=== PATIENT | male | born 1970 | race Caucasian/White ===

== ENCOUNTER 2017-12-23 19:21 | Observation (INO) ==
[2017-12-23] MEDS ORDERED: Aspirin 81 MG TAB.CHEW PO ONE (19:39)
[2017-12-23] MEDS ORDERED: *HR* LORazepam 2 MG/ML VIAL IM STA (19:40)
--- NOTE | 2017-12-23 19:41 | Emergency Department Note ---
Disposition Clinical Impression: Patient needs psychiatric hold for evaluation, Chest pain, Seizures, Pneumonia Disposition: Admitted As Inpatient Condition: Fair General Adult HPI - General Chief complaint: ED Chest Pain Stated complaint: chest pain, seizure activity Time Seen by Provider: 12/23/17 19:32 - History of Present Illness Pain Scale: 10 - Related Data Home Medications Medication Instructions Recorded Confirmed ALPRAZolam [Xanax 0.5 MG Tablet] 0.5 mg PO QID 12/24/17 ALPRAZolam [Xanax 1 MG Tablet] 1 mg PO QID 12/24/17 Citalopram [CeleXA] 20 mg PO DAILY 12/24/17 12/24/17 HydrOXYzine Pamoate [Vistaril] 50 mg PO Q6H PRN 12/24/17 12/24/17 Lurasidone HCl [Latuda] 60 mg PO DAILY 12/24/17 12/24/17 Prazosin [Minipress] 1 mg PO DAILY 12/24/17 12/24/17 Trazodone HCl 150 mg PO HS 12/24/17 12/24/17 Allergies Allergy/AdvReac Type Severity Reaction Status Date / Time codeine Allergy Hives Verified 12/23/17 19:23 propoxyphene Allergy Hives Verified 12/23/17 19:23 [From Darvocet-N] tramadol AdvReac Vomiting Verified 12/23/17 19:23 Past Medical History - Past Medical History Medical history: Reports: diabetes, hepatitis Psychiatric history: Reports: no psych history - Social History Smoking Status: Current every day smoker Alcohol use: Reports: none Drug use: Reports: none Course Vital Signs Temperature 98.3 F 12/23/17 19:24 Pulse Rate 105 12/23/17 19:24 Respiratory Rate 13 12/23/17 19:24 Blood Pressure 163/97 12/23/17 19:24 O2 Sat by Pulse Oximetry 99 12/23/17 19:24 Temperature 97.4 F L 12/24/17 03:53 Pulse Rate 80 12/24/17 06:50 Respiratory Rate 18 12/24/17 07:58 Blood Pressure 138/94 12/24/17 07:58 O2 Sat by Pulse Oximetry 100 12/24/17 06:50 Oxygen Delivery Oxygen Delivery Room Air Medical Decision Making - Lab Data Result diagrams: 12/24/17 05:12 12/23/17 20:59 Lab Results 12/23/17 12/23/17 12/23/17 Range/Units 20:50 20:50 20:59 WBC 18.4 H (4.3-11.1) K/mcL RBC 4.43 (4.19-5.50) M/mcL Hgb 13.8 (12.9-16.9) g/dL Hct 39.9 (37.5-50.1) % MCV 90.1 (83.0-100.0) fL MCH 31.2 (28.0-33.3) pg MCHC 34.6 (31.6-35.5) g/dL RDW 12.6 (11.5-14.5) % Plt Count 190 (140-400) K/mcL MPV 11.4 (9.4-12.4) fL Immature Gran % 0.3 (0-4) % Seg Neutrophils % 81.1 % Lymphocytes % 13.0 % Monocytes % 5.2 % Eosinophils % 0.2 % Basophils % 0.2 % Neutrophils # 14.9 H (1.6-8.9) K/mcL Lymphocytes # 2.4 (0.6-4.6) K/mcL Monocytes # 1.0 (0.0-1.3) K/mcL Eosinophils # 0.0 (0.0-0.6) K/mcL Basophils # 0.0 (0.0-0.2) K/mcL Sodium (136-145) mEq/L Potassium (3.5-5.1) mEq/L Chloride (98-107) mEq/L Carbon Dioxide (23-29) mEq/L BUN (6-20) mg/dL Creatinine (0.70-1.30) mg/dL Est GFR ( Amer) (> 60) Est GFR (Non-Af Amer) (> 60) BUN/Creatinine Ratio (6-26) Glucose (70-105) mg/dL Calculated Osmolality (280-300) Calcium (8.6-10.3) mg/dL Troponin I (< 0.04) ng/mL TSH (0.340-5.600) mcIU/mL Urine Color Yellow (Yellow) Urine Clarity Clear (Clear) Urine pH 7.5 (5.0-8.0) pH Units Ur Specific [place] 1.013 (1.010-1.025) Urine Protein Negative (Neg-Trace) mg/dL Urine Glucose (UA) Normal (Normal) mg/dL Urine Ketones Negative (Negative) mg/dL Urine Blood Negative (Negative) Urine Nitrite Negative (Negative) Urine Bilirubin Negative (Negative) Urine Urobilinogen Normal (Normal) mg/dL Ur Leukocyte Esterase Negative (Negative) Salicylates (15.0-30.0) mg/dL Urine Opiates Screen Positive H (Psjlfs=434) ng/mL Acetaminophen (10-20) mcg/mL Ur Barbiturates Screen Negative (Hpuxvd=418) ng/mL Ur Phencyclidine Scrn Negative (Cutoff=25) ng/mL Ur Amphetamines Screen Negative (Bplnrz=9656) ng/mL U Benzodiazepines Scrn Positive H (Loauoa=739) ng/mL Urine Cocaine Screen Positive H (Cutoff= 300) ng/mL U Marijuana (THC) Screen Positive H (Cutoff = 50) ng/mL Ethyl Alcohol (Less than 10) mg/dL 12/23/17 12/23/17 12/23/17 Range/Units 20:59 20:59 20:59 WBC (4.3-11.1) K/mcL RBC (4.19-5.50) M/mcL Hgb (12.9-16.9) g/dL Hct (37.5-50.1) % MCV (83.0-100.0) fL MCH (28.0-33.3) pg MCHC (31.6-35.5) g/dL RDW (11.5-14.5) % Plt Count (140-400) K/mcL MPV (9.4-12.4) fL Immature Gran % (0-4) % Seg Neutrophils % % Lymphocytes % % Monocytes % % Eosinophils % % Basophils % % Neutrophils # (1.6-8.9) K/mcL Lymphocytes # (0.6-4.6) K/mcL Monocytes # (0.0-1.3) K/mcL Eosinophils # (0.0-0.6) K/mcL Basophils # (0.0-0.2) K/mcL Sodium 139 (136-145) mEq/L Potassium 3.6 (3.5-5.1) mEq/L Chloride 107 (98-107) mEq/L Carbon Dioxide 24 (23-29) mEq/L BUN 11 (6-20) mg/dL Creatinine 1.02 (0.70-1.30) mg/dL Est GFR ( Amer) > 60 (> 60) Est GFR (Non-Af Amer) > 60 (> 60) BUN/Creatinine Ratio 11 (6-26) Glucose 102 (70-105) mg/dL Calculated Osmolality 288 (280-300) Calcium 9.2 (8.6-10.3) mg/dL Troponin I < 0.03 (< 0.04) ng/mL TSH 0.546 (0.340-5.600) mcIU/mL Urine Color (Yellow) Urine Clarity (Clear) Urine pH (5.0-8.0) pH Units Ur Specific [place] (1.010-1.025) Urine Protein (Neg-Trace) mg/dL Urine Glucose (UA) (Normal) mg/dL Urine Ketones (Negative) mg/dL Urine Blood (Negative) Urine Nitrite (Negative) Urine Bilirubin (Negative) Urine Urobilinogen (Normal) mg/dL Ur Leukocyte Esterase (Negative) Salicylates < 2.5 L (15.0-30.0) mg/dL Urine Opiates Screen (Qzfcmu=422) ng/mL Acetaminophen < 10 L (10-20) mcg/mL Ur Barbiturates Screen (Pkrddh=143) ng/mL Ur Phencyclidine Scrn (Cutoff=25) ng/mL Ur Amphetamines Screen (Guzydo=4326) ng/mL U Benzodiazepines Scrn (Dfrxds=496) ng/mL Urine Cocaine Screen (Cutoff= 300) ng/mL U Marijuana (THC) Screen (Cutoff = 50) ng/mL Ethyl Alcohol < 10 (Less than 10) mg/dL 12/24/17 12/24/17 Range/Units 05:11 05:12 WBC 9.6 (4.3-11.1) K/mcL RBC 4.69 (4.19-5.50) M/mcL Hgb 14.4 (12.9-16.9) g/dL Hct 43.1 (37.5-50.1) % MCV 91.9 (83.0-100.0) fL MCH 30.7 (28.0-33.3) pg MCHC 33.4 (31.6-35.5) g/dL RDW 12.7 (11.5-14.5) % Plt Count 189 (140-400) K/mcL MPV 11.1 (9.4-12.4) fL Immature Gran % 0.1 (0-4) % Seg Neutrophils % 53.9 % Lymphocytes % 40.1 % Monocytes % 4.7 % Eosinophils % 0.8 % Basophils % 0.4 % Neutrophils # 5.2 (1.6-8.9) K/mcL Lymphocytes # 3.8 (0.6-4.6) K/mcL Monocytes # 0.5 (0.0-1.3) K/mcL Eosinophils # 0.1 (0.0-0.6) K/mcL Basophils # 0.0 (0.0-0.2) K/mcL Sodium (136-145) mEq/L Potassium (3.5-5.1) mEq/L Chloride (98-107) mEq/L Carbon Dioxide (23-29) mEq/L BUN (6-20) mg/dL Creatinine (0.70-1.30) mg/dL Est GFR ( Amer) (> 60) Est GFR (Non-Af Amer) (> 60) BUN/Creatinine Ratio (6-26) Glucose (70-105) mg/dL Calculated Osmolality (280-300) Calcium (8.6-10.3) mg/dL Troponin I < 0.03 (< 0.04) ng/mL TSH (0.340-5.600) mcIU/mL Urine Color (Yellow) Urine Clarity (Clear) Urine pH (5.0-8.0) pH Units Ur Specific [place] (1.010-1.025) Urine Protein (Neg-Trace) mg/dL Urine Glucose (UA) (Normal) mg/dL Urine Ketones (Negative) mg/dL Urine Blood (Negative) Urine Nitrite (Negative) Urine Bilirubin (Negative) Urine Urobilinogen (Normal) mg/dL Ur Leukocyte Esterase (Negative) Salicylates (15.0-30.0) mg/dL Urine Opiates Screen (Lczbqu=222) ng/mL Acetaminophen (10-20) mcg/mL Ur Barbiturates Screen (Eooqsf=077) ng/mL Ur Phencyclidine Scrn (Cutoff=25) ng/mL Ur Amphetamines Screen (Gwoaae=0628) ng/mL U Benzodiazepines Scrn (Oxhvay=792) ng/mL Urine Cocaine Screen (Cutoff= 300) ng/mL U Marijuana (THC) Screen (Cutoff = 50) ng/mL Ethyl Alcohol (Less than 10) mg/dL Attestation Statement - Attestation Attestation: I examined this patient and my medical decision-making was reviewed with the Resident Physician. I agree with the documented findings, disposition and treatment plan as described except to the extent set forth below. Face to face Patient to ED with CP. He reports generalized shaking described as "shaking". He's somewhat agitated on exam. He's awake and alert with non rhythmic leg shaking. Plan of care discussed by me with the resident physician 20:41: patient attempted to leave. his mother provided additional info that he has been pacing, not sleeping, "talking to people who aren't there." I'm concenred for his safety. He was pink slipped for his personal protection. Will will pursue futher workup for the cause of his mentation and possible have 1A evaluate the patient 00:28: patient too sleepy for 1A evaluation. Care endorsed to Dr. Coy pending sobriety, 1A eval
--- NOTE | 2017-12-23 20:21 | Emergency Department Note ---
Disposition Clinical Impression: Patient needs psychiatric hold for evaluation, Seizures Chest pain Qualifiers: Chest pain type: unspecified Qualified Code(s): R07.9 - Chest pain, unspecified Disposition: Still a Patient Condition: Fair Referrals: NONE,PCP [Primary Care Provider] - Forms: ED Satisfaction Letter Time of Disposition: 00:30 Chest Pain HPI - General Chief Complaint: ED Chest Pain Stated Complaint: chest pain, seizure activity Time Seen by Provider: 12/23/17 19:32 Vital Signs Reviewed: Yes Nursing Notes Reviewed: Yes - History of Present Illness HPI Narrative: 47-year-old male presents with complaint of chest pain and seizures. Patient states he had a seizure at home and was brought in by his mother who states that he was jerking and his eyes rolled back into his head. Patient states he has chest pain as 10/10 in intensity minutes substernal with radiation to both arms and his neck. Patient states his chest pain has been nonreproducible and constant for several weeks now. Patient's mother states that he was seen at [facility] where he was OFFERED admission but he refused. He was seen a few weeks ago here and was offered an admission after his workup and he refused. He states he wants to stay this time. Patient denies illicit drug use, and alcohol use. Severity scale (1-10): 10 - Related Data Home Medications Medication Instructions Recorded Confirmed Alprazolam [Xanax] 2 mg PO TID 02/26/16 02/26/16 Oxycodone HCl/Acetaminophen 1 tab PO TID PRN 02/26/16 02/26/16 [Percocet 10-325 mg Tablet] Previous Rx's Medication Instructions Recorded Furosemide [Lasix] 20 mg PO DAILY 3 Days tablet 03/04/16 Allergies Allergy/AdvReac Type Severity Reaction Status Date / Time acetaminophen Allergy Hives Verified 12/23/17 19:23 [From Darvocet-N] codeine Allergy Hives Verified 12/23/17 19:23 propoxyphene Allergy Hives Verified 12/23/17 19:23 [From Darvocet-N] tramadol AdvReac Vomiting Verified 12/23/17 19:23 All systems ED: reviewed and negative except as stated. Review of Systems: As Per HPI Constitutional: Denies: fever, chills, weakness Cardiovascular: Reports: chest pain Chest Pain PMH - Past Medical History Medical history: Reports: diabetes, hepatitis Psychiatric history: Reports: no psych history - Social History Smoking Status: Current every day smoker Alcohol use: Reports: none Drug use: Reports: none Physical Exam Vital Signs Temperature 98.3 F 12/23/17 19:24 Pulse Rate 105 12/23/17 19:24 Respiratory Rate 13 12/23/17 19:24 Blood Pressure 163/97 12/23/17 19:24 O2 Sat by Pulse Oximetry 99 12/23/17 19:24 Temperature 98.3 F 12/23/17 19:24 Pulse Rate 84 12/23/17 22:58 Respiratory Rate 18 12/23/17 22:58 Blood Pressure 141/94 12/23/17 22:58 O2 Sat by Pulse Oximetry 96 12/23/17 22:58 Oxygen Delivery Oxygen Delivery Room Air CONSTITUTIONAL: Well-nourished male who is; A&O X 3, and appears to be in some distress. Patient is currently shaking and he states he cannot control his shaking. HEAD: Normocephalic; atraumatic EYES: PERRL, no scleral icterus NOSE: The nose is normal in appearance without rhinorrhea NECK: No JVD or distended neck veins RESP: Normal chest excursion with respiration; breath sounds clear and equal bilaterally; no wheezes, rhonchi, or rales CARD: Regular rhythm, without murmurs, rub or gallop ABD: Non-distended; non-tender, soft, without rigidity, rebound or guarding,no pulsatile mass CHEST: No pain with palpation SKIN: Normal for age and race; warm and dry without diaphoresis ; no apparent lesions EXTREMITIES: Pulses are 2 plus and equal times 4 extremities, no peripheral edema or calf muscle pain Course Course Narrative: Attestation by Dr. Shailesh Larkin. Following case as senior resident in conjunction with Dr. Chaney and Dr. Frances. Patient has been agitated during stay, shaking, is confused. Mother states that patient has been talking to people that aren't there at home, pacing, not acting himself. Patient is trying to elope; do not feel comfortable with letting patient leave at this time, concern that patient cannot take care of himself, does not have capacity to understand risk of leaving before cardiac workup is performed. [place] slip has been signed, will proceed with medical clearance labs for psychiatric evaluation along with cardiac eval. Please refer to Dr. Chaney and Dr. Frances's notes for any additional details. - Reevaluation(s) Reevaluation #1: Patient given 1 mg IM Ativan to help calm him down so we can continue his workup Time: 20:21 Reevaluation #2: Patient continues to interfere with treatment plan and evaluation. He said to get up and try to leave. Patient's mother who is very elderly and is very concerned for the patient's health has revealed that patient has been up pacing at home at night talking to speaking incoherently. She has had to take him [facility] in the past for the same chest pain and seizure activity. My attending here Dr. Frances treated patient on a previous visit for the same symptoms a few weeks ago. The decision was made to detain the patient for psychiatric evaluation since he does not appear to currently have the capacity to understand that he may have a life threatening issue. Time: 20:39 Reevaluation #3: Patient medically cleared for evaluation by 1A Time: 22:03 Vital Signs Temperature 98.3 F 12/23/17 19:24 Pulse Rate 105 12/23/17 19:24 Respiratory Rate 13 12/23/17 19:24 Blood Pressure 163/97 12/23/17 19:24 O2 Sat by Pulse Oximetry 99 12/23/17 19:24 Temperature 98.3 F 12/23/17 19:24 Pulse Rate 84 12/23/17 22:58 Respiratory Rate 18 12/23/17 22:58 Blood Pressure 141/94 12/23/17 22:58 O2 Sat by Pulse Oximetry 96 12/23/17 22:58 Oxygen Delivery Oxygen Delivery Room Air Chest Pain - MDM Narrative Medical decision making narrative: Patient received ACS workup for chest pain but had a negative troponin and nonischemic EKG. Patient has a heart score of 3. Patient's lab work revealed positive for substances to include marijuana, cocaine. WBC elevated is most likely stress induced demargination, but the rest of his lab work was clinically unremarkable. Due to remarks made by the patient's mother patient was held for psychiatric evaluation. Patient required treatment with IM Ativan in order to further his workup, and currently requires time for the Ativan to wear off as he is to drowsy to be evaluated by 1A. Psychiatric hold paperwork filled out. Patient will be monitored by the night crew Dr. Coy ED attending and Dr. Puga ED resident. They have been brought up to speed on patient's current condition and reasons for evaluation. They agree to continue caring for the patient. - Lab Data Lab results reviewed: Yes I reviewed the patient's lab results. Lab results narrative: Short CBC 12/23/17 Range/Units 20:59 WBC 18.4 H (4.3-11.1) K/mcL Hgb 13.8 (12.9-16.9) g/dL Hct 39.9 (37.5-50.1) % Plt Count 190 (140-400) K/mcL Neutrophils # 14.9 H (1.6-8.9) K/mcL BMP 12/23/17 Range/Units 20:59 Sodium 139 (136-145) mEq/L Potassium 3.6 (3.5-5.1) mEq/L Chloride 107 (98-107) mEq/L Carbon Dioxide 24 (23-29) mEq/L BUN 11 (6-20) mg/dL Creatinine 1.02 (0.70-1.30) mg/dL Glucose 102 (70-105) mg/dL Calcium 9.2 (8.6-10.3) mg/dL Cardiac Enzymes 12/23/17 Range/Units 20:59 Troponin I < 0.03 (< 0.04) ng/mL Urine 12/23/17 Range/Units 20:50 Urine Color Yellow (Yellow) Urine Clarity Clear (Clear) Urine pH 7.5 (5.0-8.0) pH Units Ur Specific [place] 1.013 (1.010-1.025) Urine Protein Negative (Neg-Trace) mg/dL Urine Glucose (UA) Normal (Normal) mg/dL Result diagrams: 12/23/17 20:59 12/23/17 20:59 Lab Results 12/23/17 12/23/17 12/23/17 Range/Units 20:50 20:50 20:59 WBC 18.4 H (4.3-11.1) K/mcL RBC 4.43 (4.19-5.50) M/mcL Hgb 13.8 (12.9-16.9) g/dL Hct 39.9 (37.5-50.1) % MCV 90.1 (83.0-100.0) fL MCH 31.2 (28.0-33.3) pg MCHC 34.6 (31.6-35.5) g/dL RDW 12.6 (11.5-14.5) % Plt Count 190 (140-400) K/mcL MPV 11.4 (9.4-12.4) fL Immature Gran % 0.3 (0-4) % Seg Neutrophils % 81.1 % Lymphocytes % 13.0 % Monocytes % 5.2 % Eosinophils % 0.2 % Basophils % 0.2 % Neutrophils # 14.9 H (1.6-8.9) K/mcL Lymphocytes # 2.4 (0.6-4.6) K/mcL Monocytes # 1.0 (0.0-1.3) K/mcL Eosinophils # 0.0 (0.0-0.6) K/mcL Basophils # 0.0 (0.0-0.2) K/mcL Sodium (136-145) mEq/L Potassium (3.5-5.1) mEq/L Chloride (98-107) mEq/L Carbon Dioxide (23-29) mEq/L BUN (6-20) mg/dL Creatinine (0.70-1.30) mg/dL Est GFR ( Amer) (> 60) Est GFR (Non-Af Amer) (> 60) BUN/Creatinine Ratio (6-26) Glucose (70-105) mg/dL Calculated Osmolality (280-300) Calcium (8.6-10.3) mg/dL Troponin I (< 0.04) ng/mL TSH (0.340-5.600) mcIU/mL Urine Color Yellow (Yellow) Urine Clarity Clear (Clear) Urine pH 7.5 (5.0-8.0) pH Units Ur Specific [place] 1.013 (1.010-1.025) Urine Protein Negative (Neg-Trace) mg/dL Urine Glucose (UA) Normal (Normal) mg/dL Urine Ketones Negative (Negative) mg/dL Urine Blood Negative (Negative) Urine Nitrite Negative (Negative) Urine Bilirubin Negative (Negative) Urine Urobilinogen Normal (Normal) mg/dL Ur Leukocyte Esterase Negative (Negative) Salicylates (15.0-30.0) mg/dL Urine Opiates Screen Positive H (Fbhjvk=005) ng/mL Acetaminophen (10-20) mcg/mL Ur Barbiturates Screen Negative (Xybpws=435) ng/mL Ur Phencyclidine Scrn Negative (Cutoff=25) ng/mL Ur Amphetamines Screen Negative (Abrbsk=6975) ng/mL U Benzodiazepines Scrn Positive H (Kdznqg=329) ng/mL Urine Cocaine Screen Positive H (Cutoff= 300) ng/mL U Marijuana (THC) Screen Positive H (Cutoff = 50) ng/mL Ethyl Alcohol (Less than 10) mg/dL 12/23/17 12/23/17 12/23/17 Range/Units 20:59 20:59 20:59 WBC (4.3-11.1) K/mcL RBC (4.19-5.50) M/mcL Hgb (12.9-16.9) g/dL Hct (37.5-50.1) % MCV (83.0-100.0) fL MCH (28.0-33.3) pg MCHC (31.6-35.5) g/dL RDW (11.5-14.5) % Plt Count (140-400) K/mcL MPV (9.4-12.4) fL Immature Gran % (0-4) % Seg Neutrophils % % Lymphocytes % % Monocytes % % Eosinophils % % Basophils % % Neutrophils # (1.6-8.9) K/mcL Lymphocytes # (0.6-4.6) K/mcL Monocytes # (0.0-1.3) K/mcL Eosinophils # (0.0-0.6) K/mcL Basophils # (0.0-0.2) K/mcL Sodium 139 (136-145) mEq/L Potassium 3.6 (3.5-5.1) mEq/L Chloride 107 (98-107) mEq/L Carbon Dioxide 24 (23-29) mEq/L BUN 11 (6-20) mg/dL Creatinine 1.02 (0.70-1.30) mg/dL Est GFR ( Amer) > 60 (> 60) Est GFR (Non-Af Amer) > 60 (> 60) BUN/Creatinine Ratio 11 (6-26) Glucose 102 (70-105) mg/dL Calculated Osmolality 288 (280-300) Calcium 9.2 (8.6-10.3) mg/dL Troponin I < 0.03 (< 0.04) ng/mL TSH 0.546 (0.340-5.600) mcIU/mL Urine Color (Yellow) Urine Clarity (Clear) Urine pH (5.0-8.0) pH Units Ur Specific [place] (1.010-1.025) Urine Protein (Neg-Trace) mg/dL Urine Glucose (UA) (Normal) mg/dL Urine Ketones (Negative) mg/dL Urine Blood (Negative) Urine Nitrite (Negative) Urine Bilirubin (Negative) Urine Urobilinogen (Normal) mg/dL Ur Leukocyte Esterase (Negative) Salicylates < 2.5 L (15.0-30.0) mg/dL Urine Opiates Screen (Phlsnf=076) ng/mL Acetaminophen < 10 L (10-20) mcg/mL Ur Barbiturates Screen (Hoytox=435) ng/mL Ur Phencyclidine Scrn (Cutoff=25) ng/mL Ur Amphetamines Screen (Oaubqg=2616) ng/mL U Benzodiazepines Scrn (Exkqzl=582) ng/mL Urine Cocaine Screen (Cutoff= 300) ng/mL U Marijuana (THC) Screen (Cutoff = 50) ng/mL Ethyl Alcohol < 10 (Less than 10) mg/dL - Radiology Data Radiology results reviewed: Yes I reviewed the patient's radiology results. Short CBC 12/23/17 Range/Units 20:59 WBC 18.4 H (4.3-11.1) K/mcL Hgb 13.8 (12.9-16.9) g/dL Hct 39.9 (37.5-50.1) % Plt Count 190 (140-400) K/mcL Neutrophils # 14.9 H (1.6-8.9) K/mcL BMP 12/23/17 Range/Units 20:59 Sodium 139 (136-145) mEq/L Potassium 3.6 (3.5-5.1) mEq/L Chloride 107 (98-107) mEq/L Carbon Dioxide 24 (23-29) mEq/L BUN 11 (6-20) mg/dL Creatinine 1.02 (0.70-1.30) mg/dL Glucose 102 (70-105) mg/dL Calcium 9.2 (8.6-10.3) mg/dL Cardiac Enzymes 12/23/17 Range/Units 20:59 Troponin I < 0.03 (< 0.04) ng/mL Urine 12/23/17 Range/Units 20:50 Urine Color Yellow (Yellow) Urine Clarity Clear (Clear) Urine pH 7.5 (5.0-8.0) pH Units Ur Specific [place] 1.013 (1.010-1.025) Urine Protein Negative (Neg-Trace) mg/dL Urine Glucose (UA) Normal (Normal) mg/dL - EKG Data EKG attestation: Yes I reviewed and interpreted this EKG. EKG results narrative: EKG taken 12/23/2017 at 2102 hrs. shows a sinus rhythm at a rate of 95 beats minute with VA shortening and no delta wave for WPW. There are no ST elevations or depressions in any leads no QRS widening or acute QT prolongation No change from previous EKG taken 01/01/2018. Heart Score - Score History: Slightly Suspicious EKG: Non Specific repolarisation Disturbance Age: 45-65 Risk Factors: 1-2 risk factors Troponin: Less than normal limit HEART Score Total: 3
[2017-12-23 21:16] LABS: Bilirubin,Urine Negative (Negative); Blood,Urine Negative (Negative); Clarity,Urine Clear (Clear); Color,Urine Yellow (Yellow); Glucose,Urine (UA) Normal (Normal); Ketones,Urine Negative (Negative); Leukocyte Esterase,Urine Negative (Negative); Nitrite,Urine Negative (Negative); PH,Urine 7.5 pH Units (5.0-8.0); Protein,Urine Negative (Neg-Trace); Specific Gravity,Urine 1.013 (1.010-1.025); Urobilinogen,Urine Normal (Normal)
[2017-12-23] MEDS ORDERED: Aspirin 81 MG TAB.CHEW ONE (21:16)
[2017-12-23 21:24] LABS: Amphetamine Screen,Urine Negative ng/mL (Cutoff=1000); Barbiturate Screen,Urine Negative ng/mL (Cutoff=200); Benzodiazepines Screen,Urine Positive ng/mL (Cutoff=200); Cannabinoid Screen,Urine Positive ng/mL (Cutoff = 50); Cocaine Screen,Urine Positive ng/mL (Cutoff= 300); Opiate Screen,Urine Positive ng/mL (Cutoff=300); Phencyclidine Screen,Urine Negative ng/mL (Cutoff=25)
[2017-12-23 21:24] LABS: Basophils % 0.2 %; Eosinophils % 0.2 %; Hematocrit 39.9 % (37.5-50.1); Hemoglobin 13.8 g/dL (12.9-16.9); Immature Granulocytes % 0.3 % (0-4); Lymphocytes # 2.4 K/mcL (0.6-4.6); Mean Corpuscular HGB Conc 34.6 g/dL (31.6-35.5); Mean Corpuscular Hemoglobin 31.2 pg (28.0-33.3); Mean Corpuscular Volume 90.1 fL (83.0-100.0); Mean Platelet Volume 11.4 fL (9.4-12.4); Monocytes % 5.2 %; Neutrophils # 14.9 K/mcL (1.6-8.9); Platelet Count 190 K/mcL (140-400); Red Blood Count 4.43 M/mcL (4.19-5.50); Red Cell Distribution Width 12.6 % (11.5-14.5); Segmented Neutrophils % 81.1 %
[2017-12-23 21:33] LABS: Acetaminophen < 10 mcg/mL (10-20)
[2017-12-23 21:34] LABS: Ethanol < 10 mg/dL (Less than 10); Salicylate < 2.5 mg/dL (15.0-30.0)
[2017-12-23 21:36] LABS: BUN/Creatinine Ratio 11 (6-26); Blood Urea Nitrogen 11 mg/dL (6-20); Calcium 9.2 mg/dL (8.6-10.3); Carbon Dioxide 24 mEq/L (23-29); Chloride 107 mEq/L (98-107); Glucose 102 mg/dL (70-105); Osmolality,Calculated 288 (280-300); Potassium 3.6 mEq/L (3.5-5.1); Sodium 139 mEq/L (136-145); eGFR For African Americans > 60 (> 60); eGFR For Non-African Americans > 60 (> 60)
[2017-12-23 21:37] LABS: Troponin I < 0.03 ng/mL (< 0.04)
[2017-12-24] MEDS ORDERED: Azithromycin 500 MG in D5% in Water 250 ML IVPB ONE (05:01)
[2017-12-24] MEDS ORDERED: cefTRIAXone 1,000 MG in Water for inj. (sterile) 20 ML 10 ML IVP ONE (05:01)
--- NOTE | 2017-12-24 05:12 | Emergency Department Note ---
Disposition Clinical Impression: Patient needs psychiatric hold for evaluation, Seizures Chest pain Qualifiers: Chest pain type: unspecified Qualified Code(s): R07.9 - Chest pain, unspecified Pneumonia Qualifiers: Pneumonia type: due to unspecified organism Laterality: bilateral Lung location : unspecified part of lung Qualified Code(s): J18.9 - Pneumonia, unspecified organism Disposition: Still a Patient Condition: Fair Referrals: NONE,PCP [Primary Care Provider] - Forms: ED Satisfaction Letter Time of Disposition: 05:11 General Adult HPI - General Chief complaint: ED Chest Pain Stated complaint: chest pain, seizure activity Time Seen by Provider: 12/23/17 19:32 Nursing Notes Reviewed: Yes Vital Signs Reviewed: Yes - History of Present Illness Pain Scale: 0 - Related Data Home Medications Medication Instructions Recorded Confirmed Alprazolam [Xanax] 2 mg PO TID 02/26/16 02/26/16 Oxycodone HCl/Acetaminophen 1 tab PO TID PRN 02/26/16 02/26/16 [Percocet 10-325 mg Tablet] Previous Rx's Medication Instructions Recorded Furosemide [Lasix] 20 mg PO DAILY 3 Days tablet 03/04/16 Allergies Allergy/AdvReac Type Severity Reaction Status Date / Time acetaminophen Allergy Hives Verified 12/23/17 19:23 [From Darvocet-N] codeine Allergy Hives Verified 12/23/17 19:23 propoxyphene Allergy Hives Verified 12/23/17 19:23 [From Darvocet-N] tramadol AdvReac Vomiting Verified 12/23/17 19:23 Constitutional: Denies: fever, chills, weakness Cardiovascular: Reports: chest pain Past Medical History - Past Medical History Medical history: Reports: diabetes, hepatitis Psychiatric history: Reports: no psych history - Social History Smoking Status: Current every day smoker Alcohol use: Reports: none Drug use: Reports: none Physical Exam - General General appearance: other (Patient asleep. He does arouse to painful stimuli. However quickly falls back asleep.) - Head Head exam: atraumatic, normocephalic, normal inspection - Eye Eye exam: Present: normal appearance - Respiratory Respiratory exam: Absent: respiratory distress Course Course Narrative: Patient signed out to us. On review of patient's labs and his chest x-ray patient does appear to have a bilateral pneumonia. We will start patient on azithromycin and Rocephin at this time. I do not believe patient can take by mouth medication as he is hard to arouse. Whenever I do attempt to arouse him he groans and grunts states to leave him alone. Patient is coughing whenever I entered the room. We will get blood cultures on the patient and admit to the hospital for further psychiatric vibration. Patient is still pink slipped. - Consultations Consultation #1: Dr uRst accepted patient in stable condition. Time: 05:11 Vital Signs Temperature 98.3 F 12/23/17 19:24 Pulse Rate 105 12/23/17 19:24 Respiratory Rate 13 12/23/17 19:24 Blood Pressure 163/97 12/23/17 19:24 O2 Sat by Pulse Oximetry 99 12/23/17 19:24 Temperature 97.4 F L 12/24/17 03:53 Pulse Rate 78 12/24/17 03:53 Respiratory Rate 18 12/24/17 03:53 Blood Pressure 133/98 12/24/17 03:53 O2 Sat by Pulse Oximetry 98 12/24/17 03:53 Oxygen Delivery Oxygen Delivery Room Air Medical Decision Making - Medical Records Medical records reviewed: Yes I reviewed the patient's medical records. - Lab Data Lab results reviewed: Yes I reviewed the patient's lab results. Result diagrams: 12/23/17 20:59 12/23/17 20:59 Lab Results 12/23/17 12/23/17 12/23/17 Range/Units 20:50 20:50 20:59 WBC 18.4 H (4.3-11.1) K/mcL RBC 4.43 (4.19-5.50) M/mcL Hgb 13.8 (12.9-16.9) g/dL Hct 39.9 (37.5-50.1) % MCV 90.1 (83.0-100.0) fL MCH 31.2 (28.0-33.3) pg MCHC 34.6 (31.6-35.5) g/dL RDW 12.6 (11.5-14.5) % Plt Count 190 (140-400) K/mcL MPV 11.4 (9.4-12.4) fL Immature Gran % 0.3 (0-4) % Seg Neutrophils % 81.1 % Lymphocytes % 13.0 % Monocytes % 5.2 % Eosinophils % 0.2 % Basophils % 0.2 % Neutrophils # 14.9 H (1.6-8.9) K/mcL Lymphocytes # 2.4 (0.6-4.6) K/mcL Monocytes # 1.0 (0.0-1.3) K/mcL Eosinophils # 0.0 (0.0-0.6) K/mcL Basophils # 0.0 (0.0-0.2) K/mcL Sodium (136-145) mEq/L Potassium (3.5-5.1) mEq/L Chloride (98-107) mEq/L Carbon Dioxide (23-29) mEq/L BUN (6-20) mg/dL Creatinine (0.70-1.30) mg/dL Est GFR ( Amer) (> 60) Est GFR (Non-Af Amer) (> 60) BUN/Creatinine Ratio (6-26) Glucose (70-105) mg/dL Calculated Osmolality (280-300) Calcium (8.6-10.3) mg/dL Troponin I (< 0.04) ng/mL TSH (0.340-5.600) mcIU/mL Urine Color Yellow (Yellow) Urine Clarity Clear (Clear) Urine pH 7.5 (5.0-8.0) pH Units Ur Specific [place] 1.013 (1.010-1.025) Urine Protein Negative (Neg-Trace) mg/dL Urine Glucose (UA) Normal (Normal) mg/dL Urine Ketones Negative (Negative) mg/dL Urine Blood Negative (Negative) Urine Nitrite Negative (Negative) Urine Bilirubin Negative (Negative) Urine Urobilinogen Normal (Normal) mg/dL Ur Leukocyte Esterase Negative (Negative) Salicylates (15.0-30.0) mg/dL Urine Opiates Screen Positive H (Bfgbba=111) ng/mL Acetaminophen (10-20) mcg/mL Ur Barbiturates Screen Negative (Fqqcgf=603) ng/mL Ur Phencyclidine Scrn Negative (Cutoff=25) ng/mL Ur Amphetamines Screen Negative (Jkmtjj=0383) ng/mL U Benzodiazepines Scrn Positive H (Xcytgd=685) ng/mL Urine Cocaine Screen Positive H (Cutoff= 300) ng/mL U Marijuana (THC) Screen Positive H (Cutoff = 50) ng/mL Ethyl Alcohol (Less than 10) mg/dL 12/23/17 12/23/17 12/23/17 Range/Units 20:59 20:59 20:59 WBC (4.3-11.1) K/mcL RBC (4.19-5.50) M/mcL Hgb (12.9-16.9) g/dL Hct (37.5-50.1) % MCV (83.0-100.0) fL MCH (28.0-33.3) pg MCHC (31.6-35.5) g/dL RDW (11.5-14.5) % Plt Count (140-400) K/mcL MPV (9.4-12.4) fL Immature Gran % (0-4) % Seg Neutrophils % % Lymphocytes % % Monocytes % % Eosinophils % % Basophils % % Neutrophils # (1.6-8.9) K/mcL Lymphocytes # (0.6-4.6) K/mcL Monocytes # (0.0-1.3) K/mcL Eosinophils # (0.0-0.6) K/mcL Basophils # (0.0-0.2) K/mcL Sodium 139 (136-145) mEq/L Potassium 3.6 (3.5-5.1) mEq/L Chloride 107 (98-107) mEq/L Carbon Dioxide 24 (23-29) mEq/L BUN 11 (6-20) mg/dL Creatinine 1.02 (0.70-1.30) mg/dL Est GFR ( Amer) > 60 (> 60) Est GFR (Non-Af Amer) > 60 (> 60) BUN/Creatinine Ratio 11 (6-26) Glucose 102 (70-105) mg/dL Calculated Osmolality 288 (280-300) Calcium 9.2 (8.6-10.3) mg/dL Troponin I < 0.03 (< 0.04) ng/mL TSH 0.546 (0.340-5.600) mcIU/mL Urine Color (Yellow) Urine Clarity (Clear) Urine pH (5.0-8.0) pH Units Ur Specific [place] (1.010-1.025) Urine Protein (Neg-Trace) mg/dL Urine Glucose (UA) (Normal) mg/dL Urine Ketones (Negative) mg/dL Urine Blood (Negative) Urine Nitrite (Negative) Urine Bilirubin (Negative) Urine Urobilinogen (Normal) mg/dL Ur Leukocyte Esterase (Negative) Salicylates < 2.5 L (15.0-30.0) mg/dL Urine Opiates Screen (Lzpdzz=840) ng/mL Acetaminophen < 10 L (10-20) mcg/mL Ur Barbiturates Screen (Chhhzd=028) ng/mL Ur Phencyclidine Scrn (Cutoff=25) ng/mL Ur Amphetamines Screen (Imjudc=0406) ng/mL U Benzodiazepines Scrn (Duquir=511) ng/mL Urine Cocaine Screen (Cutoff= 300) ng/mL U Marijuana (THC) Screen (Cutoff = 50) ng/mL Ethyl Alcohol < 10 (Less than 10) mg/dL - Radiology Data Radiology results reviewed: Yes I reviewed the patient's radiology results. Chest X-Ray 12/23/17 19:40 IMPRESSION: Findings as above. Differential includes edema or infection. D/ / Dinora Hernandes MD / Dinora Hernandes MD Interpreting Provider: Dinora Hernandes MD Head CT 12/23/17 20:40 IMPRESSION: 1. No acute intracranial abnormality. 2. Right maxillary sinusitis. D/ / Garfield Moreno / Garfield Moreno Interpreting Provider: Garfield Moreno
[2017-12-24] MEDS ORDERED: Acetaminophen 325 MG TABLET PO PRN (05:14)
[2017-12-24] MEDS ORDERED: Naloxone 0.4 MG/ML INJ IVP PRN (05:14)
--- NOTE | 2017-12-24 05:16 | Emergency Department Note ---
START Narrative - START START: I examined this patient and my medical decision-making was reviewed with the Resident Physician. I agree with the documented findings, disposition and treatment plan as described except to the extent set forth below. Findings consistent with pneumonia, leukocytosis, persistent altered mental status and failure for mental status to clear and appropriate time frame. I do suspect possible prolonged postictal state from seizure earlier today. CT of the brain shows no acute findings. Patient has a productive cough. We will start antibiotics for community-acquired pneumonia and proceed with admission for further evaluation of altered mental status in the setting of pneumonia. I cannot not exclude the possibility of aspiration pneumonia.
--- NOTE | 2017-12-24 05:21 | Internal Med History&Physical ---
Date of Encounter: 12/24/17 Time of Encounter: 05:19 Internal Medicine - H&P: HPI Chief complaint: Chest pain Admitted From: Emergency Dept Plans for Post Hospital Care: Home History of present illness: Mr. Morales is a 47 year old male who presented to the ED with complaints of seizures at home and was brought by his mother who noted that the patient was having jerking movements and his eyes rolled back. The patient also reported chest pain that was 10 out of 10 in intensity with radiation to both arms and his neck. The patient's chest pain has been going on for some time she was evaluated in the ED for this previously as well. The patient was evaluated at [facility] for this and refused admission. He was in our facility in the ED a few weeks ago and refused admission. The patient's ED course has been complicated by the patient pain agitated and get going to leave. He was pink slipped in the ED due to his mother stating that the patient has been incoherent and hallucinating at home. He was given Ativan in the ED and has been hard to arouse since but became again agitated when they tried getting IV access on him. CT head was negative. Chest x-ray showed pneumonia. His urine drug screen came back positive for opiates, benzos and cocaine. UA was negative. The patient was given ceftriaxone, Zithromax, aspirin 325 mg. Laboratory studies were significant for leukocytosis. The ED wanted the patient initially to be evaluated by psych however after further evaluation by the ED staff, they felt that the patient was more appropriate for medicine hospitalization given his overall picture. Past Med Surg Social Fam HX - Past Medical History Medical history: diabetes, hepatitis Psychiatric history: no psych history - Social History Smoking Status: Current every day smoker Alcohol use: none Drug use: none Internal Medicine - H&P: Meds ALPRAZolam [Xanax 0.5 MG Tablet] 0.5 mg PO QID 12/24/17 [History] ALPRAZolam [Xanax 1 MG Tablet] 1 mg PO QID 12/24/17 [History] Citalopram [CeleXA] 20 mg PO DAILY 12/24/17 [History] HydrOXYzine Pamoate [Vistaril] 50 mg PO Q6H PRN 12/24/17 [History] Lurasidone HCl [Latuda] 60 mg PO DAILY 12/24/17 [History] Prazosin [Minipress] 1 mg PO DAILY 12/24/17 [History] Trazodone HCl 150 mg PO HS 12/24/17 [History] 3 Allergy/AdvReac Type Severity Reaction Status Date / Time codeine Allergy Hives Verified 12/23/17 19:23 propoxyphene Allergy Hives Verified 12/23/17 19:23 [From Darvocet-N] tramadol AdvReac Vomiting Verified 12/23/17 19:23 ROS unobtainable: due to mental status All Systems PM: A 10-system review of systems was performed and is negative for pertinent findings except as documented above in the HPI. - Constitutional Vitals: Temp Pulse Resp BP Pulse Ox 97.4 F L 78 18 133/98 98 12/24/17 03:53 12/24/17 03:53 12/24/17 03:53 12/24/17 03:53 12/24/17 03:53 Exam: GGEN: NAD, lethargic, not following commands HEENT: AT, NC, No cyanosis, oral mucosa is moist, No JVD Lymphatics: No lymphadenoapthy Eyes: Extrocular muscles intact, anicteric CVS:RRR. S1, S2, No m/r/g RESP: CTAB ABD: Soft, NT, ND, +BS EXT: No edema, No rashes, 2+ DP NEURO: Nonfocal, CN II-XII intact, No focal motor or sensory deficits Psych: Cooperative, Not anxious or depressed Internal Med - H&P Results - Labs CBC & Chem 7: 12/24/17 05:12 12/23/17 20:59 Labs: Short CBC 12/23/17 Range/Units 20:59 WBC 18.4 H (4.3-11.1) K/mcL Hgb 13.8 (12.9-16.9) g/dL Hct 39.9 (37.5-50.1) % Plt Count 190 (140-400) K/mcL Neutrophils # 14.9 H (1.6-8.9) K/mcL BMP 12/23/17 20:59 Sodium 139 Potassium 3.6 Chloride 107 Carbon Dioxide 24 BUN 11 Creatinine 1.02 Glucose 102 Calcium 9.2 Cardiac Enzymes 12/23/17 Range/Units 20:59 Troponin I < 0.03 (< 0.04) ng/mL Urine 12/23/17 Range/Units 20:50 Urine Color Yellow (Yellow) Urine Clarity Clear (Clear) Urine pH 7.5 (5.0-8.0) pH Units Ur Specific [place] 1.013 (1.010-1.025) Urine Protein Negative (Neg-Trace) mg/dL Urine Glucose (UA) Normal (Normal) mg/dL - Impressions ITS Impressions Chest X-Ray 12/23/17 19:40 IMPRESSION: Findings as above. Differential includes edema or infection. D/ / Dinora Hernandes MD / Dinora Hernandes MD Interpreting Provider: Dinora Hernandes MD Head CT 12/23/17 20:40 IMPRESSION: 1. No acute intracranial abnormality. 2. Right maxillary sinusitis. D/ / Garfield Moreno / Garfield Moreno Interpreting Provider: Garfield Moreno - Assessment and plan (1) Acute encephalopathy Current Visit: Yes Status: Acute Assessment and plan: Unsure if this is post ictal state or due to Ativan or due to multi-substance abuse. We will get an EEG. CT head is negative. TSH was normal in the ED. Reevaluate the patient in the morning and may need a consult to neurology. (2) Chest pain Current Visit: Yes Status: Acute Assessment and plan: Seems to have chronic chest pain for sometime now. EKG with no ST or T-wave changes. We will trend cardiac enzymes for now. Qualifiers: Chest pain type: unspecified Qualified Code(s): R07.9 - Chest pain, unspecified (3) Pneumonia Current Visit: Yes Status: Acute Assessment and plan: Continue Rocephin and Zithromax. Nebulizers. Patient is not hypoxic. IV fluid. Check sputum cultures. Check urine strep and Legionella. Follow-up on blood cultures. Qualifiers: Pneumonia type: due to unspecified organism Laterality: unspecified laterality Lung location: unspecified part of lung Qualified Code(s): J18.9 - Pneumonia, unspecified organism (4) Substance abuse Current Visit: Yes Status: Acute Assessment and plan: Patient Was positive for multiple drugs. Patient needs counseling when he is more alert. (5) Hallucination Current Visit: Yes Status: Acute Assessment and plan: Patient is hallucinating. He was agitated for the ED staff. Given Ativan has been calm sent. The patient was pink slipped by the ED pending psych evaluation. (6) DVT prophylaxis Current Visit: Yes Status: Acute Assessment and plan: Heparin subcutaneous - Time Spent With Patient Total time spent is greater than 50% in coordination of care (as documented) at patient's floor/unit and/or counseling patient:
[2017-12-24] MEDS: 0.9 % Sodium Chloride 1,000 ML IVC SCH ×3 (05:49→15:43)
[2017-12-24 06:04] LABS: Basophils % 0.4 %; Eosinophils # 0.1 K/mcL (0.0-0.6); Eosinophils % 0.8 %; Hematocrit 43.1 % (37.5-50.1); Hemoglobin 14.4 g/dL (12.9-16.9); Immature Granulocytes % 0.1 % (0-4); Lymphocytes # 3.8 K/mcL (0.6-4.6); Lymphocytes % 40.1 %; Mean Corpuscular HGB Conc 33.4 g/dL (31.6-35.5); Mean Corpuscular Hemoglobin 30.7 pg (28.0-33.3); Mean Corpuscular Volume 91.9 fL (83.0-100.0); Mean Platelet Volume 11.1 fL (9.4-12.4); Monocytes # 0.5 K/mcL (0.0-1.3); Monocytes % 4.7 %; Neutrophils # 5.2 K/mcL (1.6-8.9); Platelet Count 189 K/mcL (140-400); Red Blood Count 4.69 M/mcL (4.19-5.50); Red Cell Distribution Width 12.7 % (11.5-14.5); Segmented Neutrophils % 53.9 %
--- NOTE | 2017-12-24 06:25 | Electrocardiograph Report ---
[employer] 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
[2017-12-24] MEDS: *HR* Heparin 5,000 UNIT/ML VIAL SQ SCH ×3 (09:21→22:57)
[2017-12-24] MEDS: Ipratropium/Albuterol Neb 3 ML IH SCH ×3 (10:34→21:29)
[2017-12-24] MEDS: Nicotine 21 MG PATCH.TD24 TD SCH (12:59)
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
--- NOTE | 2017-12-24 15:42 | Event Note ---
Date of Encounter: 12/24/17 Time of Encounter: 15:42 Psychosis per Psych Nees to be trasferred to [facility]A in the morning. Polysubstance abuse COntinue Rocephin and azithromycin to treat PNA
[2017-12-25] MEDS: Ipratropium/Albuterol Neb 3 ML IH SCH ×2 (03:13→10:19)
[2017-12-25] MEDS ORDERED: Azithromycin 500 MG in D5% in Water 250 ML IVPB SCH (06:00)
[2017-12-25 06:46] LABS: BUN/Creatinine Ratio 12 (6-26); Blood Urea Nitrogen 10 mg/dL (6-20); Calcium 9.1 mg/dL (8.6-10.3); Carbon Dioxide 24 mEq/L (23-29); Chloride 110 mEq/L (98-107); Glucose 96 mg/dL (70-105); Osmolality,Calculated 289 (280-300); Potassium 3.6 mEq/L (3.5-5.1); Sodium 140 mEq/L (136-145); eGFR For African Americans > 60 (> 60); eGFR For Non-African Americans > 60 (> 60)
[2017-12-25 06:58] LABS: Basophils % 0.3 %; Eosinophils % 0.3 %; Hematocrit 44.5 % (37.5-50.1); Hemoglobin 15.4 g/dL (12.9-16.9); Immature Granulocytes % 0.4 % (0-4); Lymphocytes # 3.2 K/mcL (0.6-4.6); Lymphocytes % 31.4 %; Mean Corpuscular HGB Conc 34.6 g/dL (31.6-35.5); Mean Corpuscular Volume 89.5 fL (83.0-100.0); Mean Platelet Volume 11.4 fL (9.4-12.4); Monocytes # 0.6 K/mcL (0.0-1.3); Monocytes % 5.8 %; Neutrophils # 6.4 K/mcL (1.6-8.9); Platelet Count 193 K/mcL (140-400); Red Blood Count 4.97 M/mcL (4.19-5.50); Red Cell Distribution Width 12.6 % (11.5-14.5); Segmented Neutrophils % 61.8 %
[2017-12-25] MEDS: *HR* Heparin 5,000 UNIT/ML VIAL SQ SCH (07:00)
[2017-12-25] MEDS: 0.9 % Sodium Chloride 1,000 ML IVC SCH (07:00)
[2017-12-25] MEDS ORDERED: cefTRIAXone 1,000 MG in Water for inj. (sterile) 20 ML 10 ML IVP SCH (09:00)
[2017-12-25] MEDS: Nicotine 21 MG PATCH.TD24 TD SCH (09:08)
[2017-12-25] MEDS ORDERED: Ipratropium/Albuterol Neb 3 ML IH PRN (10:20)
[2017-12-25 11:33] VITALS: BP 168/98
--- NOTE | 2017-12-25 11:41 | Discharge Summary ---
Date of Encounter: 12/25/17 Time of Encounter: 09:00 - Discharge Diagnosis (1) Unspecified psychosis Priority: Primary Status: Acute Assessment and Plan: Hallucinations, poor insight and poor judgment Hallucinations have ceased at this point, denies any SI/HI. Has not been taking his antipsychotic medication or seizure medication Psychiatry following and recommended one-to-one sitter and restarting medications Awaiting further recommendations from psychiatrist in regards to possible discharge today to 1A Qualifiers: Psychosis type: schizoaffective disorder Schizoaffective disorder type: unspecified Qualified Code(s): F25.9 - Schizoaffective disorder, unspecified (2) Pneumonia Priority: Secondary Status: Acute Assessment and Plan: CXR-12/23/17-right basilar opacity and mild diffuse interstitial prominence. Patient noted to have leukocytosis on admission but this has since resolved without antibiotics. Sputum cultures, strep pneumo and Legionella pending Patient was ordered to have Rocephin and Zithromax but he is refusing these medications. Does not appear to be short of breath this morning and is comfortable without respiratory distress on room air Due to appearance of chest x-ray the patient would benefit from a 5 day course of Levaquin upon discharge to 1 a Qualifiers: Pneumonia type: due to unspecified organism Laterality: unspecified laterality Lung location: unspecified part of lung Qualified Code(s): J18.9 - Pneumonia, unspecified organism (3) Chest pain Priority: Secondary Status: Acute Assessment and Plan: EKG with no ST or T-wave changes. Troponins negative 3 at less than 0.03. No complaints of chest pain at this time. Qualifiers: Chest pain type: unspecified Qualified Code(s): R07.9 - Chest pain, unspecified (4) Acute encephalopathy Priority: Secondary Status: Acute Assessment and Plan: Does not appear to be encephalopathic. Alert and oriented and answering questions. Remains agitated (5) Substance abuse Priority: Secondary Status: Acute Assessment and Plan: Patient Was positive for multiple drugs. Would benefit from additional counseling. Awaiting further recommendations from psychiatrist. May discharge to one a psych unit today (6) Hallucination Priority: Secondary Status: Acute Assessment and Plan: Patient is no longer hallucinating; remains somewhat agitated. Psychiatry is seen and diagnosed with acute psychosis Would benefit from one a stay; continue Ativan for agitation (7) DVT prophylaxis Priority: Secondary Status: Acute (8) PTSD (post-traumatic stress disorder) Priority: Secondary Status: Chronic Hospital course: Mr. Morales is a 47 year old male admitted due to chest pain and complaints of seizures. The patient was brought to the hospital his mother was noted to have jerking movements and noted that his eyes were rolling back in his head. The chest pain workup was found to be negative. The patient has a history of PTSD and schizophrenia and is not compliant with this regimen. He has been seen at our facility and [facility] recently and has refused admissions each time. Psychiatric status as continuing to decline. He was pink slipped and a psychiatry consult has been performed patient is been diagnosed with acute psychosis. Also noted to have polysubstance abuse. During the workup the patient was shown to have possible pneumonia. He has been refusing antibiotics while inpatient. I have not sold convinced that this is pneumonia on the chest x-ray, patient in no respiratory distress and on room air at this time. Initially had leukocytosis on arrival however, leukocytosis has since subsided without antibiotic treatment. Clinically, patient appears stable and does not appear to have any pneumonia. Denies any cough or shortness of breath. He is resting comfortably on room air without any rashes or distress. I do not believe this time he needs antibiotic treatment. Patient is medically stable and safe for discharge to psychiatry deemed appropriate. Patient would benefit from additional counseling due to polysubstance abuse and noncompliance with antipsychotics. Denies any thoughts of suicidal ideation or homicidal ideation. Hallucinations have subsided. No seizures since his admission. - Time Spent with Patient Total time spent providing and/or coordinating discharge services: - Discharge Medications Prescriptions: Levofloxacin [Levaquin] 750 mg PO DAILY #5 tablet Home Medications: ALPRAZolam [Xanax 0.5 MG Tablet] 0.5 mg PO QID 12/24/17 [History] ALPRAZolam [Xanax 1 MG Tablet] 1 mg PO QID 12/24/17 [History] Citalopram [CeleXA] 20 mg PO DAILY 12/24/17 [History] HydrOXYzine Pamoate [Vistaril] 50 mg PO Q6H PRN 12/24/17 [History] Lurasidone HCl [Latuda] 60 mg PO DAILY 12/24/17 [History] Prazosin [Minipress] 1 mg PO DAILY 12/24/17 [History] Trazodone HCl 150 mg PO HS 12/24/17 [History] Levofloxacin [Levaquin] 750 mg PO DAILY #5 tablet 12/25/17 [Rx] Allergies/Adverse Reactions: 3 Allergy/AdvReac Type Severity Reaction Status Date / Time codeine Allergy Hives Verified 12/23/17 19:23 propoxyphene Allergy Hives Verified 12/23/17 19:23 [From Darvocet-N] tramadol AdvReac Vomiting Verified 12/23/17 19:23 Date of admission: 12/24/17 07:31 Primary care physician: PCP NONE Discharging clinician: Jesus Demarco Anticipated date of discharge: 12/25/17 - Constitutional Vitals: Temp Pulse Resp BP Pulse Ox 98.8 F 84 16 168/98 100 12/25/17 11:32 12/25/17 11:32 12/25/17 11:32 12/25/17 11:32 12/25/17 11:32 - Head Head exam: Present: atraumatic, normocephalic - Eye Eye exam: Present: PERRL, conjuntiva pink, sclera anicteric Pupils: Present: PERRL - Neck Neck exam general surgery: Present: supple, trachea midline. Absent: lymphadenopathy - Respiratory Respiratory exam: Present: CTAB. Absent: accessory muscle use, rales, rhonchi, wheezes - Cardiovascular Cardiovascular exam: Present: RRR, +S1, +S2. Absent: diastolic murmur, gallop, rubs, systolic murmur - GI/Abdominal GI/Abdominal exam: Present: normal bowel sounds, soft, no peritoneal signs. Absent: distended, tenderness - Extremities Exam Extremities exam: Present: warm, radial pulses palpable and symmetrical. Absent : calf tenderness, cyanotic, pedal edema - Neurological Exam Neurological exam: Present: CN II-XII intact, oriented X3, no focal deficits. Absent: pronater drift, facial droop, speech deficit - Psychiatric Psychiatric exam: Present: agitated. Absent: homicidal ideation, suicidal ideation - Skin Skin exam: Present: dry, intact - Patient Status Disposition: Transfer Psychiatric Hosp Condition: Fair Overall status at discharge: patient is not back to baseline - Discharge Instructions Follow Up With: NONE,PCP [Primary Care Provider] -
--- NOTE | 2017-12-25 12:21 | Neurology - Consult Note ---
Date of Encounter: 12/25/17 Time of Encounter: 10:35 Assessment and Plan (1) Unspecified psychosis Current Visit: Yes Status: Acute This patient who was admitted earlier with agitation and psychosis positive drug screen and question of seizure Though even if he had some seizure type of activity which could be jerking and shaking but does not mean that it was a true epileptic seizure especially in the clinical context with positive drug screening and abnormal labs. He seemed to be back to his baseline now remain slightly upset flat affect and mood but no focal motor deficit on neurological examination CT of the head is negative this current clinical context I would not recommend starting him on any seizure medication. EEG probably will not be beneficial either if he started having more seizure type of activity in that case we could do an EEG and further workup at the moment suggest medical treatment follow up with psychiatrist perhaps he would benefit from inpatient management We will sign off call if needed Qualifiers: Psychosis type: schizoaffective disorder Schizoaffective disorder type: unspecified Qualified Code(s): F25.9 - Schizoaffective disorder, unspecified (2) Substance abuse Current Visit: Yes Status: Acute (3) Hallucination Current Visit: Yes Status: Acute History of Present Illness HPI: Mr. Morales is a 47 year old male who presented to the ED with complaints of questionable ?? seizures at home, he was brought by his mother who noted that the patient was having jerking movements and his eyes rolled back. The patient also reported chest pain that was 10 out of 10 in intensity with radiation to both arms and his neck. The patient's chest pain has been going on for some time she was evaluated in the ED in past. The patient was [facility] at [facility] and refused [facility]. Patient noted to have some agitation in the emergency department upset and was about to leave but he was given pink slipped in the ED due to his mother stating that the patient has been incoherent and hallucinating at home. He was given Ativan in the ED. CT head was negative. Chest x-ray showed pneumonia. His urine drug screen came back positive for opiates, benzos and cocaine. The patient was given ceftriaxone, Zithromax, aspirin 325 mg. neurology consulted with the question of seizures According to the patient he had a remote history of seizure but did not have any further seizures he never been on any seizure medication he also denies any seizure activity now or prior to the admission Past Med Surg Social Fam HX - Past Medical History Medical history: diabetes, hepatitis Psychiatric history: depression, PTSD, other - Social History Smoking Status: Current every day smoker Alcohol use: none Drug use: none Medications and Allergies ALPRAZolam [Xanax 0.5 MG Tablet] 0.5 mg PO QID 12/24/17 [History] ALPRAZolam [Xanax 1 MG Tablet] 1 mg PO QID 12/24/17 [History] Citalopram [CeleXA] 20 mg PO DAILY 12/24/17 [History] HydrOXYzine Pamoate [Vistaril] 50 mg PO Q6H PRN 12/24/17 [History] Lurasidone HCl [Latuda] 60 mg PO DAILY 12/24/17 [History] Prazosin [Minipress] 1 mg PO DAILY 12/24/17 [History] Trazodone HCl 150 mg PO HS 12/24/17 [History] Levofloxacin [Levaquin] 750 mg PO DAILY #5 tablet 12/25/17 [Rx] 3 Allergy/AdvReac Type Severity Reaction Status Date / Time codeine Allergy Hives Verified 12/23/17 19:23 propoxyphene Allergy Hives Verified 12/23/17 19:23 [From Darvocet-N] tramadol AdvReac Vomiting Verified 12/23/17 19:23 All Systems: The remainder of the systems were reviewed and are negative Physical Examination - Vital Signs Vital Signs: Initial Vital Signs Temp Pulse Resp BP Pulse Ox 98.3 F 105 13 163/97 99 12/23/17 19:24 12/23/17 19:24 12/23/17 19:24 12/23/17 19:24 12/23/17 19:24 - Exam Exam: GENERAL: Comfortable in no acute distress HEENT: Normal LUNGS: CTA HEART: RRR, S1 S2 Audible, no murmur EXTREMITIES: No Pedal edema. DETAILED NEUROLOGICAL EXAMINATION: MENTAL STATUS: Oriented to person, place, date and situation. Memory: knows the President, Aware of recent events Recent Memory Intact, no short-term memory deficit attention and concentration all within normal limit Cranial Nerve Examination: CN - II: Visual Acuity, Field of Vision Normal, Fundus examination: No disk edema, Pupils- size shape reaction to light and accommodation: All normal. CN III, IV, : External ocular movements were intact, Pupils were reactive, Nodrooping of the eyelids CN V: Sensation over the face to light touch and pinprick all normal. Corneal reflexes not tested, jaw jerk normal. CN VII: No facial asymmetry, no flattening of nasolabial folds, no difficulty in closing the eyes, no loss of forehead wrinkles, no difficulty in eye-closure, frowning raising eyebrows. CNVIII: No significant hearing loss CN IX, X: Uvula centralized not deviated, Gag reflex: Not tested CN X1: Sternocleidomastoid, trapezius, normal or evidence of any weakness. CN X11: No Dysarthria, no wasting or fibrilation f tongue muscles, no deviation, tongue muscle strength normal. Motor examination: No hypertrophy, tone was normal, power grade 0-5 Upper limbs Proximal- No difficulty in lifting the arms above the head. Distal- No weakness in distal muscles On formal testing 5/5 all over Lower limbs On formal testing 5/5 all over Coordination: Ahylyi-gv-gcpr normal. Target pursuit normal finger tapping normal, Rapid alternating moment of wrist normal Sensory system: Superficial sensations- Touch normal. Pain- Pinprick, Temperature all normal, Deep sensation normal, Joint position sense normal. Cortical sensation, Tactile discrimination, localization and extinction all normal. Deep tendon reflexes. Symmetrical bilateral, No evidence of Babinski. No sign of meningeal irritation Gait Examination: Deferred Results - Laboratory Findings CBC and BMP: 12/25/17 06:11 12/25/17 06:11 Abnormal lab findings: Abnormal lab results Chloride 110 mEq/L (98-107) H 12/25/17 06:11 Salicylates < 2.5 mg/dL (15.0-30.0) L 12/23/17 20:59 Urine Opiates Screen Positive ng/mL (Vzmdls=675) H 12/23/17 20:50 Acetaminophen < 10 mcg/mL (10-20) L 12/23/17 20:59 U Benzodiazepines Scrn Positive ng/mL (Iakkxi=787) H 12/23/17 20:50 Urine Cocaine Screen Positive ng/mL (Cutoff= 300) H 12/23/17 20:50 U Marijuana (THC) Screen Positive ng/mL (Cutoff = 50) H 12/23/17 20:50 - Diagnostic Findings Additional findings: CT scan of the head was negative Urine drug screen positive Consult Discharge Plan - Plan Referrals: NONE,PCP [Primary Care Provider] - Prescriptions: Levofloxacin [Levaquin] 750 mg PO DAILY #5 tablet
--- NOTE | 2017-12-25 13:12 | Consult Note ---
Date of Encounter: 12/25/17 Time of Encounter: 12:30 Assessment & Recommendation (1) Unspecified psychosis Current visit: Yes Status: Resolved Assessment & Recommendation: patient at present having no psychosis. Qualifiers: Psychosis type: schizoaffective disorder Schizoaffective disorder type: unspecified Qualified Code(s): F25.9 - Schizoaffective disorder, unspecified (2) PTSD (post-traumatic stress disorder) Current visit: Yes Status: Chronic Assessment & Recommendation: continue all his medication. History of Present Illness Patient: known to practice within the last 3 years Requesting Physician: Josselyn Rust Reason for consult: follow up History of present illness: Mr. Morales is a 47 year old male was seen today to follow up, yesterday patient was not giving much history and had no eye contact , so got information from his mother . Today he is more verbal and good eye contact, states he is doing well , he does not have any chest pain or anxiety , he sees his psychiatrist every month. states he takes his medication and asked about his benzo. he is on high dose of benzo , states he only takes as prescribed , he was educated about opiates and benzodiazepine together are not good combination as he was positive for opiates , he stated i do not use them as often , he agreed he has guilt about his family because he was not there , but denies any depression, psychosis, suicidal ideation,homicidal ideation at present. He lives with his parents and helps them with chores. He at present is not in danger to self/others, no psychosis, no agitation and states will comply with treatment plan. A/P PTSD /dEPRESSION/aNXIETY. dc 1:1 PATIENT NOT SUICIDAL/HOMICIDAL OR PSYCHOTIC AT PRESENT. F/U with his out patient psychiatrist . Will sign off and Thank you for consult and involving us in your patients care. CC: Josselyn Rust Past Med Surg Social Fam HX - Past Medical History Medical history: diabetes, hepatitis - Past Psychiatric History Psychiatric history: Reports: depression, PTSD Family psychiatric history: No Family History of Suicide: None - Social History Smoking Status: Current every day smoker Alcohol use: none Drug use: none Medications & Allergies ALPRAZolam [Xanax 0.5 MG Tablet] 0.5 mg PO QID 12/24/17 [History] ALPRAZolam [Xanax 1 MG Tablet] 1 mg PO QID 12/24/17 [History] Citalopram [CeleXA] 20 mg PO DAILY 12/24/17 [History] HydrOXYzine Pamoate [Vistaril] 50 mg PO Q6H PRN 12/24/17 [History] Lurasidone HCl [Latuda] 60 mg PO DAILY 12/24/17 [History] Prazosin [Minipress] 1 mg PO DAILY 12/24/17 [History] Trazodone HCl 150 mg PO HS 12/24/17 [History] Levofloxacin [Levaquin] 750 mg PO DAILY #5 tablet 12/25/17 [Rx] 3 Allergy/AdvReac Type Severity Reaction Status Date / Time codeine Allergy Hives Verified 12/23/17 19:23 propoxyphene Allergy Hives Verified 12/23/17 19:23 [From Darvocet-N] tramadol AdvReac Vomiting Verified 12/23/17 19:23 Psychiatry Exam - Constitutional Vitals: Temp Pulse Resp BP Pulse Ox 98.8 F 84 16 168/98 100 12/25/17 11:32 12/25/17 11:32 12/25/17 11:32 12/25/17 11:32 12/25/17 11:32 General appearance: age & developmentally appropriate, well-groomed, well- nourished - Musculoskeletal Gait: normal Station: relaxed Strength & Tone: normal for patient - Psychiatric Patient Orientation: Yes Person, Yes Time, Yes Place Level of alertness: Alert Behavior: calm, cooperative Psychomotor activity: Normal Eye Contact: Maintains Eye Contact Mood Description: Euthymic/stable Affect description: blunted Speech Volume: Normal Speech pattern: normal rate, normal rhythm, normal tone, fluent, spontaneous Language & Vocabulary: consistent with education Thought Process: Linear, Goal Oriented Thought Content: No Suicidal ideation, No Homicidal ideation, No Overt delusions Perceptual Disturbances: No Auditory hallucinations, No Visual hallucinations Attention Span Ability: Capable of Focused Attention Memory Description: Grossly Intact Patient Reliability: Reliable Historian Fund of knowledge: Yes abstraction ability, Yes aware of current events Intelligence Estimate: Average Judgment: Fair Insight: Partial Results - Labs Labs: Laboratory Last Values WBC 10.3 K/mcL (4.3-11.1) 12/25/17 06:11 RBC 4.97 M/mcL (4.19-5.50) 12/25/17 06:11 Hgb 15.4 g/dL (12.9-16.9) 12/25/17 06:11 Hct 44.5 % (37.5-50.1) 12/25/17 06:11 MCV 89.5 fL (83.0-100.0) 12/25/17 06:11 MCH 31.0 pg (28.0-33.3) 12/25/17 06:11 MCHC 34.6 g/dL (31.6-35.5) 12/25/17 06:11 RDW 12.6 % (11.5-14.5) 12/25/17 06:11 Plt Count 193 K/mcL (140-400) 12/25/17 06:11 MPV 11.4 fL (9.4-12.4) 12/25/17 06:11 Immature Gran % 0.4 % (0-4) 12/25/17 06:11 Seg Neutrophils % 61.8 % 12/25/17 06:11 Lymphocytes % 31.4 % 12/25/17 06:11 Monocytes % 5.8 % 12/25/17 06:11 Eosinophils % 0.3 % 12/25/17 06:11 Basophils % 0.3 % 12/25/17 06:11 Neutrophils # 6.4 K/mcL (1.6-8.9) 12/25/17 06:11 Lymphocytes # 3.2 K/mcL (0.6-4.6) 12/25/17 06:11 Monocytes # 0.6 K/mcL (0.0-1.3) 12/25/17 06:11 Eosinophils # 0.0 K/mcL (0.0-0.6) 12/25/17 06:11 Basophils # 0.0 K/mcL (0.0-0.2) 12/25/17 06:11 Sodium 140 mEq/L (136-145) 12/25/17 06:11 Potassium 3.6 mEq/L (3.5-5.1) 12/25/17 06:11 Chloride 110 mEq/L (98-107) H 12/25/17 06:11 Carbon Dioxide 24 mEq/L (23-29) 12/25/17 06:11 BUN 10 mg/dL (6-20) 12/25/17 06:11 Creatinine 0.82 mg/dL (0.70-1.30) 12/25/17 06:11 Est GFR ( Amer) > 60 (> 60) 12/25/17 06:11 Est GFR (Non-Af Amer) > 60 (> 60) 12/25/17 06:11 BUN/Creatinine Ratio 12 (6-26) 12/25/17 06:11 Glucose 96 mg/dL (70-105) 12/25/17 06:11 Calculated Osmolality 289 (280-300) 12/25/17 06:11 Calcium 9.1 mg/dL (8.6-10.3) 12/25/17 06:11 Magnesium 2.0 mg/dL (1.6-2.6) 12/25/17 06:11 Troponin I < 0.03 ng/mL (< 0.04) 12/24/17 10:51 TSH 0.546 mcIU/mL (0.340-5.600) 12/23/17 20:59 Urine Color Yellow (Yellow) 12/23/17 20:50 Urine Clarity Clear (Clear) 12/23/17 20:50 Urine pH 7.5 pH Units (5.0-8.0) 12/23/17 20:50 Ur Specific Ola 1.013 (1.010-1.025) 12/23/17 20:50 Urine Protein Negative mg/dL (Neg-Trace) 12/23/17 20:50 Urine Glucose (UA) Normal mg/dL (Normal) 12/23/17 20:50 Urine Ketones Negative mg/dL (Negative) 12/23/17 20:50 Urine Blood Negative (Negative) 12/23/17 20:50 Urine Nitrite Negative (Negative) 12/23/17 20:50 Urine Bilirubin Negative (Negative) 12/23/17 20:50 Urine Urobilinogen Normal mg/dL (Normal) 12/23/17 20:50 Ur Leukocyte Esterase Negative (Negative) 12/23/17 20:50 Salicylates < 2.5 mg/dL (15.0-30.0) L 12/23/17 20:59 Urine Opiates Screen Positive ng/mL (Xqbctv=368) H 12/23/17 20:50 Acetaminophen < 10 mcg/mL (10-20) L 05/03/18 20:59 Ur Barbiturates Screen Negative ng/mL (Zietfw=755) 12/23/17 20:50 Ur Phencyclidine Scrn Negative ng/mL (Cutoff=25) 12/23/17 20:50 Ur Amphetamines Screen Negative ng/mL (Fauxim=4362) 12/23/17 20:50 U Benzodiazepines Scrn Positive ng/mL (Luojsj=242) H 12/23/17 20:50 Urine Cocaine Screen Positive ng/mL (Cutoff= 300) H 12/23/17 20:50 U Marijuana (THC) Screen Positive ng/mL (Cutoff = 50) H 12/23/17 20:50 Ethyl Alcohol < 10 mg/dL (Less than 10) 12/23/17 20:59 Consult Discharge Plan - Plan Referrals: NONE,PCP [Primary Care Provider] - Prescriptions: Levofloxacin [Levaquin] 750 mg PO DAILY #5 tablet
== END 2017-12-25 14:13 ==
LOC: EMEROO 19:21 → 3BNU 19:21
PROVIDERS: ADMIT Internal Medicine; ATTEND Internal Medicine